=== PATIENT | female | born 1985 | race Caucasian/White ===

== ENCOUNTER 2016-07-02 09:41 | Emergency (ER) | payer OTHER ==
[2016-07-02 11:00] VITALS: BP 110/73
[2016-07-02] MEDS ORDERED: Ketorolac INJ* 60 MG/2 ML VIAL IM ONE (11:52)
--- NOTE | 2016-07-02 11:58 | UC ---
Back Pain HPI - HPI Summary HPI Summary: low back pain x 3 days after a fall while shoveling snow. Also left perineal sore that has been draining for a month. States she squeezed it and got something out, but it has not gone away. No fever. LMP present since 06/25/16 Pt has some chronic back pain has had tylenol with codeine, tramadol in the past. I stop also shows suboxone for several months in Jan. Pt states she never used drugs. Was getting counseling at [facility] on [address] in [place] and states she used to smoke marijuana. States she has 3 kids and "would never touch that stuff". - History of Current Complaint Chief Complaint: UCBackPain Stated Complaint: S/P LOWER BACK PAIN/UPPER THIGH COMPLAINT Time Seen by Provider: 07/02/16 11:40 Hx Obtained From: Patient Hx Last Menstrual Period: 06/25/16 ?: No Onset/Duration: Gradual Onset, Lasting Days, Still Present Timing: Constant Severity Initially: Moderate Severity Currently: Moderate Pain Intensity: 9 Pain Scale Used: 0-10 Numeric Back Pain: Is Discrete @ - lower back and left perineal Character: Aching Aggravating: Movement Alleviating: Nothing Associated Signs And Symptoms: Positive: Numbness, Tingling. Negative: Bladder Incontinence, Bowel Incontinence Related History: Previous Back Injury - Allergies/Home Medications Allergies/Adverse Reactions: Allergies Allergy/AdvReac Type Severity Reaction Status Date / Time Azithromycin Allergy Unknown vomiiting Verified 01/16/16 17:22 [From Zithromax Z-Rigoberto] Naproxen AdvReac Intermediate NAUSEA, Verified 01/16/16 17:22 VOMITING Home Medications: Home Medications Tylenol With Codeine 1 dose PO SEE INSTRUCTIONS PRN 07/02/16 [History Confirmed 07/02/16] PMH/Surg Hx/FS Hx/Imm Hx Previously Healthy: No - was on suboxone but then was taken off this,states she never abused drugs Endocrine History Of: Denies: Diabetes Cardiovascular History Of: Denies: Hypertension, Pacemaker/ICD Respiratory History Of: Reports: Asthma GI/ History Of: Denies: Renal Disease - Surgical History Surgical History: Yes Surgery Procedure, Year, and Place: [id number]; tubal ligation - Family History Known Family History: Positive: Hypertension - Social History Lives: With Family Alcohol Use: None Substance Use Type: Prescribed Smoking Status (MU): Heavy Every Day Tobacco Smoker Type: Cigarettes Amount Used/How Often: 1/2 PPD Household Exposure Type: Cigarettes Review of Systems Constitutional: Negative Skin: Other - draining spot on left labia majora Gastrointestinal: Negative Motor: Other - low back pain Neurovascular: Negative Musculoskeletal: Arthralgia Neurological: Negative Psychological: Negative All Other Systems Reviewed And Are Negative: Yes Physical Exam Triage Information Reviewed: Yes Appearance: Well-Appearing, Well-Nourished, Pain Distress Vital Signs: Initial Vital Signs Temp 99.7 F 07/02/16 10:52 Pulse 76 07/02/16 10:52 Resp 20 07/02/16 10:52 BP 110/73 07/02/16 10:52 Vital Signs Reviewed: Yes Eyes: Positive: Conjunctiva Clear ENT: Positive: Normal ENT inspection Neck: Positive: Supple, Nontender, No Lymphadenopathy Respiratory: Positive: Lungs clear, Normal breath sounds, No respiratory distress Cardiovascular: Positive: RRR, No Murmur, Pulses Normal, Brisk Capillary Refill Abdomen Description: Positive: Nontender, No Organomegaly, Soft. Negative: Distended, Guarding Bowel Sounds: Positive: Present Musculoskeletal: Positive: Strength Intact, ROM Intact, Other: - point tenderness low lumbar spine Neurological: Positive: Alert, Muscle Tone Normal Psychological Exam: Normal Skin: Positive: Other - no track durant, tattoos, draining lesion left perineum ( left labia majora) with pinpoint redness, shaved pubic area, no mass Back Pain Course/Dx - Course Course Of Treatment: wound cultured left perineum/labia majora in shaved area. toradol 30mg IM given, despite listed allergy to naproxen which is not a true allergy, is nausea/vomiting. Pt regularly takes ibuprofen without adverse effect or allergy. discussed narcotic and hx suboxone RX. Pt insists that she was never a drug abuser. - Differential Dx/Diagnosis Differential Diagnosis/HQI/PQRI: Fracture, Herniated Disc, Strain, Sprain Provider Diagnoses: sacrococcygeal fracture. abscess left groin Discharge - Discharge Plan Condition: Stable Disposition: HOME Prescriptions: Acetaminop/Codeine 30 MG TAB* [Tylenol/Codeine 30 MG TAB*] 1 tab PO Q6H PRN #12 tab MDD 4 PRN Reason: Pain Cephalexin CAP* [Keflex 500 CAP*] 500 mg PO QID #40 cap Ibuprofen TAB* [Motrin TAB* 800 MG] 800 mg PO Q6H #40 tab Sulfamethox/Trimethoprim DS* [Bactrim DS 800/160 TAB*] 1 tab PO BID #20 tab Patient Education Materials: Coccyx Injury (ED), Abscess (ED) Referrals: LESTER Herring [Primary Care Provider] - Additional Instructions: Dr. Shankar recommends Sitz baths and a donut cushion. Ask about a toilet insert for the Sitz baths. Dr. Shankar gave you a shot of Toradol (ketorolac) at 12:21pm, even though you have an listed allergy to naproxen and you did not have an allergic reaction. You have a minimally displaced fracture at the sacrococcygeal junction. Return to urgent care if any new or worsening symptoms.
[2016-07-02] MEDS ORDERED: Ketorolac INJ* 30 MG/ML 1 ML VIAL IM ONE (12:17)
--- NOTE | 2016-07-02 12:27 | RAD ---
HISTORY: Fall, low back pain COMPARISONS: None VIEWS: 5 , Frontal, lateral, coned-down lateral sacral, and bilateral oblique views of the lumbar spine. FINDINGS: ALIGNMENT: The alignment is normal. VERTEBRAL BODIES: There is a step-off of the sacrococcygeal junction suggestive of a minimally displaced fracture JOINTS: There is mild facet hypertrophic change along the lower lumbar spine INTERVERTEBRAL DISCS: The intervertebral disc heights are normal. SOFT TISSUE: Unremarkable. OTHER: The pelvis is unremarkable. The lung bases are clear. IMPRESSION: PROBABLE MINIMALLY DISPLACED FRACTURE OF THE SACROCOCCYGEAL JUNCTION
== END 2016-07-02 13:10 | disposition home or self-care (01) ==
LOC: UCCORT 09:41
DX: S32.2XXA Fracture of coccyx, initial encounter for closed fracture (principal); W00.0XXA Fall on same level due to ice and snow, initial encounter; Y93.H1 Activity, digging, shoveling and raking; Y92.9 Unspecified place or not applicable; L02.214 Cutaneous abscess of groin; Z88.6 Allergy status to analgesic agent; Z88.1 Allergy status to other antibiotic agents; F17.210 Nicotine dependence, cigarettes, uncomplicated; Z32.02 Encounter for pregnancy test, result negative
CPT/HCPCS: 72110; 81003; 84702; 87070; 87077; 87205; 87640; 87641; 96372; 99212; G0463; J1885

== ENCOUNTER 2016-07-04 18:19 | Emergency (ER) | payer OTHER ==
[2016-07-04 18:32] VITALS: BP 111/63
--- NOTE | 2016-07-04 19:07 | UC ---
Back Pain HPI - HPI Summary HPI Summary: here for narcotic pain med---as she is not getting pain relief with tylenol and codiene. - History of Current Complaint Chief Complaint: UCBackPain Stated Complaint: LOW BACK PAIN FOLLOW UP Time Seen by Provider: 07/04/16 19:05 Hx Obtained From: Patient Hx Last Menstrual Period: 06/25/16 ?: No Onset/Duration: Gradual Onset, Lasting Days - 5, Still Present Timing: Constant Severity Initially: Moderate Severity Currently: Moderate Pain Intensity: 8 Back Pain: Is Discrete @ - coccyx Character: Aching, Throbbing Aggravating: Movement Alleviating: Nothing Associated Signs And Symptoms: Positive: Negative Related History: Previous Back Injury - fell 5 days ago---seen 2 days ago dx with coccyx fx. - Allergies/Home Medications Allergies/Adverse Reactions: Allergies Allergy/AdvReac Type Severity Reaction Status Date / Time Azithromycin Allergy Unknown vomiiting Verified 07/04/16 18:32 [From Zithromax Z-Rigoberto] Naproxen AdvReac Intermediate NAUSEA, Verified 07/04/16 18:32 VOMITING PMH/Surg Hx/FS Hx/Imm Hx Previously Healthy: Yes Endocrine History Of: Denies: Diabetes Cardiovascular History Of: Denies: Hypertension, Pacemaker/ICD Respiratory History Of: Reports: Asthma GI/ History Of: Denies: Renal Disease - Surgical History Surgical History: Yes Surgery Procedure, Year, and Place: [id number]; tubal ligation - Family History Known Family History: Positive: Hypertension - Social History Occupation: Unemployed Lives: With Family Alcohol Use: None Substance Use Type: Prescribed Smoking Status (MU): Heavy Every Day Tobacco Smoker Type: Cigarettes Amount Used/How Often: 1/2 PPD Have You Smoked in the Last Year: Yes Household Exposure Type: Cigarettes Cessation Counseling: Patient Advised to Stop Review of Systems Constitutional: Negative Skin: Negative Eyes: Negative ENT: Negative Respiratory: Negative Cardiovascular: Negative Gastrointestinal: Negative Genitourinary: Negative Motor: Negative Neurovascular: Negative Musculoskeletal: Arthralgia - coccyx pain Neurological: Negative Psychological: Negative All Other Systems Reviewed And Are Negative: Yes Physical Exam Triage Information Reviewed: Yes Appearance: Well-Appearing, Well-Nourished, Pain Distress - mild Vital Signs: Initial Vital Signs Temp 99.1 F 07/04/16 18:24 Pulse 80 03/19/17 18:24 Resp 16 07/04/16 18:24 BP 111/63 07/04/16 18:24 Pulse Ox 98 07/04/16 18:24 Vital Signs Reviewed: Yes Eye Exam: Normal Eyes: Positive: Conjunctiva Clear ENT Exam: Normal ENT: Positive: Normal ENT inspection, Hearing grossly normal. Negative: Nasal congestion, Nasal drainage, Trismus, Muffled/hoarse voice Dental: Positive: Gross Decay/Caries @ Neck exam: Normal Neck: Positive: Supple, Nontender, No Lymphadenopathy Respiratory Exam: Normal Respiratory: Positive: Chest non-tender, No respiratory distress, No accessory muscle use Cardiovascular Exam: Normal Cardiovascular: Positive: RRR, No Murmur, Pulses Normal, Brisk Capillary Refill Musculoskeletal Exam: Normal Musculoskeletal: Positive: Strength Intact, ROM Intact, No Edema Neurological Exam: Normal Neurological: Positive: Alert, Muscle Tone Normal Psychological Exam: Normal Skin Exam: Normal Re-Evaluation - Re-Evaluation First Eval Change: Improved - pain relief with Tordal Back Pain Course/Dx - Course Course Of Treatment: extensive support regarding opiate abuse and relapse prevention (as patient asked for vicoden and oxy for pain med), rx for donut pillow po to, follow with pcp on as planned - Differential Dx/Diagnosis Differential Diagnosis/HQI/PQRI: Fracture, Strain, Sprain Provider Diagnoses: Coccyx fracture, opiate addiction , nicotine addiction Discharge - Discharge Plan Condition: Stable Disposition: HOME Prescriptions: Ketorolac TAB (NF) [Toradol TAB (NF)] 10 mg PO TID #15 tab Patient Education Materials: Coccyx Injury (ED) Referrals: LESTER Herring [Primary Care Provider] - 07/07/16 (as planned )
[2016-07-04] MEDS ORDERED: Ketorolac INJ* 60 MG/2 ML VIAL IM ONE (19:15)
== END 2016-07-04 20:06 | disposition home or self-care (01) ==
LOC: UCCORT 18:19
DX: S32.2XXD Fracture of coccyx, subsequent encounter for fracture with routine healing (principal); W19.XXXD Unspecified fall, subsequent encounter; Z88.6 Allergy status to analgesic agent; Z55.1 Schooling unavailable and unattainable; F11.20 Opioid dependence, uncomplicated; F17.210 Nicotine dependence, cigarettes, uncomplicated
CPT/HCPCS: 96372; 99212; G0463; J1885

== ENCOUNTER 2016-08-16 09:42 | Emergency (ER) | payer OTHER ==
[2016-08-16 10:01] VITALS: BP 106/66
--- NOTE | 2016-08-16 10:17 | UC ---
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 who is 5 years old and her lower back started hurting pain is constant aching sometimes stabbing pain in sacral area pain is non radiating bending forward and lifting increases the pain denies any trauma has been taking tylenol and ibuprofen, flexeril without relief last night took hydrocodone that her mother gave her and it was effective last pain medication 8pm yesterday never went to ortho for followup had some mild pain in right rib this morning but has resolved denies fever , incontinence needs refill on albuterol inhaler - History of Current Complaint Chief Complaint: UCBackPain Stated Complaint: LOWER BACK/RIGHT RIB PAIN Time Seen by Provider: 08/16/16 10:10 Hx Obtained From: Patient Hx Last Menstrual Period: 07/26/16 - Allergies/Home Medications Allergies/Adverse Reactions: Allergies Allergy/AdvReac Type Severity Reaction Status Date / Time Azithromycin Allergy Unknown vomiiting Verified 08/16/16 10:01 [From Zithromax Z-Rigoberto] Naproxen AdvReac Intermediate NAUSEA, Verified 08/16/16 10:01 VOMITING Home Medications: Home Medications Acetaminophen TAB* [Tylenol TAB*] 2,000 mg PO Q5H PRN 08/16/16 [History Confirmed 08/16/16] Cyclobenzaprine TAB* [Flexeril 10 MG TAB*] 10 mg PO TID PRN 08/16/16 [History Confirmed 08/16/16] Ibuprofen TAB* [Motrin TAB* 800 MG] 800 mg PO Q6H PRN 08/16/16 [History Confirmed 08/16/16] PMH/Surg Hx/FS Hx/Imm Hx Previously Healthy: Yes Endocrine History Of: Denies: Diabetes Cardiovascular History Of: Denies: Hypertension, Pacemaker/ICD Respiratory History Of: Reports: Asthma GI/ History Of: Denies: Renal Disease - Surgical History Surgical History: Yes Surgery Procedure, Year, and Place: [id number]; tubal ligation - Family History Known Family History: Positive: Hypertension Negative: Cardiac Disease, Diabetes - Social History Occupation: Employed Full-time Lives: With Family Alcohol Use: None Substance Use Type: Prescribed Smoking Status (MU): Heavy Every Day Tobacco Smoker Type: Cigarettes Amount Used/How Often: 1/2 PPD Have You Smoked in the Last Year: Yes Household Exposure Type: Cigarettes Cessation Counseling: Patient Advised to Stop Review of Systems Constitutional: Negative Skin: Negative Eyes: Negative ENT: Negative Respiratory: Negative Cardiovascular: Negative Gastrointestinal: Negative Genitourinary: Negative Motor: Negative Neurovascular: Negative Musculoskeletal: Other: - lower back pain Neurological: Negative Psychological: Negative All Other Systems Reviewed And Are Negative: Yes Physical Exam Triage Information Reviewed: Yes Appearance: No Pain Distress, Well-Nourished Vital Signs: Initial Vital Signs Temp 99.2 F 08/16/16 09:51 Pulse 86 08/16/16 09:51 Resp 18 08/16/16 09:51 BP 106/66 08/16/16 09:51 Pulse Ox 99 08/16/16 09:51 Vital Signs Reviewed: Yes Eyes: Positive: Conjunctiva Clear ENT: Positive: Pharynx normal, TMs normal Neck: Positive: No Lymphadenopathy Respiratory: Positive: Lungs clear, Normal breath sounds, No respiratory distress, No accessory muscle use Cardiovascular: Positive: RRR, No Murmur, Pulses Normal Abdomen Description: Positive: Nontender, No Organomegaly, Soft Bowel Sounds: Positive: Present Musculoskeletal: Positive: Other: - Spine have no noted deformities or signs of inflammation. Curvature of thoracic, and lumbar spine are within normal limits. Bony features of shoulders and hips are of equal height bilaterally. Posture is upright, and gait is smooth and normal. Spinous processes of T1-L5 palpable, midline, and non-tender; No step-offs. tenderness in sacral musculature and over coccyx Flexion, extension, and rotation of the remaining spinal column is within normal limits. Patient cannot flex forward d/t pain pain. Lateral bending causes no discomfort when bending to the right and left side. Neurological Exam: Normal Neurological: Positive: Other: - patellar reflaexes intoct, SLR negative Psychological Exam: Normal Skin Exam: Normal Throat Pain/Nasal Course/Dx - Course Course Of Treatment: x-ray shows no evidence for fracture will start muscle relaxer, NSAIDS and sent to PT for further evaluation. - Differential Dx/Diagnosis Differential Diagnosis/HQI/PQRI: Other - fx coccyx, acute lower back pain Provider Diagnoses: lower back pain Discharge - Discharge Plan Condition: Stable Disposition: HOME Prescriptions: Albuterol HFA INHALER* [Ventolin HFA Inhaler*] 2 puff INH Q4H PRN #1 mdi PRN Reason: Wheezing Ibuprofen TAB* [Motrin TAB* 800 MG] 800 mg PO Q8H #30 tab Metaxalone TAB* [Skelaxin TAB*] 800 mg PO TID #30 tab Patient Education Materials: Low Back Strain (ED) Referrals: LESTER Herring [Primary Care Provider] - Additional Instructions: Start skelaxin as directed. Do not drink alcohol or drive while taking skelaxin Please call physical therapy for further evaluation and treatment. Take ibuprofen for fever or pain. Increase fluids and rest. Please review your discharge instructions. If your symptoms do not improve please call your primary care provider or return to urgent care.
[2016-08-16] MEDS ORDERED: Ketorolac INJ* 60 MG/2 ML VIAL IM ONE (10:20)
--- NOTE | 2016-08-16 10:47 | RAD ---
INDICATION: Sacrococcygeal pain. COMPARISON: Comparison is made with a prior x-ray study of the lumbar sacral spine from July 02, 2016. TECHNIQUE: 3 views of the sacrococcygeal spine were obtained. FINDINGS: The vertebra are in normal alignment. No fracture is seen. There is a single surgical clip which projects to the left of the midline. IMPRESSION: NO EVIDENCE FOR FRACTURE, IF THE PATIENT'S SYMPTOMS PERSIST CONSIDER MR IMAGING.
== END 2016-08-16 11:14 | disposition home or self-care (01) ==
LOC: UCCORT 09:42
DX: M54.5 Low back pain (principal); R07.81 Pleurodynia; J45.909 Unspecified asthma, uncomplicated; Z88.1 Allergy status to other antibiotic agents; Z88.6 Allergy status to analgesic agent; F17.210 Nicotine dependence, cigarettes, uncomplicated
CPT/HCPCS: 72220; 96372; 99212; G0463; J1885

== ENCOUNTER 2017-06-10 09:58 | Emergency (ER) | payer OTHER ==
[2017-06-10 11:57] VITALS: BP 117/80
[2017-06-10] MEDS ORDERED: Acetaminophen TAB* 325 MG PO ONE (12:12)
--- NOTE | 2017-06-10 12:21 | UC ---
HPI Febrile Illness - HPI Summary HPI Summary: Pt here w/ SANTAMARIA, photophobia, anterior muscle soreness from ab up to neck, fever, diarrhea w/ vomiting (none today -drinking cola w/o difficulty), nasal congestion and throat irritation w/ intermittent/scant cough. She received influenza vaccine. Has school aged kids at home w/ similar sx. Has asthma and smokes but reports she's not been smoking as she's too sore. Has not needed to use her albuterol more than q 6 hours and helps when she uses it. No chest pain , SOB, wheezing or tightness. Has tried ibuprofen 800mg for body aches w/ minimal relief. Does not want anything for nausea at this time -holding things down today. - History of Current Complaint Chief Complaint: UCGeneralIllness Time Seen by Provider: 06/10/17 11:41 Hx Obtained From: Patient Hx Last Menstrual Period: 05/06/17 Pain Intensity: 9 - Allergy/Home Medications Allergies/Adverse Reactions: Allergies Allergy/AdvReac Type Severity Reaction Status Date / Time azithromycin Allergy Nausea And Verified 06/10/17 11:49 Vomiting naproxen Allergy Nausea And Verified 06/10/17 11:49 Vomiting PMH/Surg Hx/FS Hx/Imm Hx Previously Healthy: Yes Respiratory History: Asthma - Surgical History Surgical History: Yes Surgery Procedure, Year, and Place: [id number]; tubal ligation - Family History Known Family History: Positive: Hypertension Negative: Cardiac Disease, Diabetes - Social History Occupation: Unemployed Lives: With Family Alcohol Use: None Substance Use Type: None Smoking Status (MU): Current Every Day Smoker Type: Cigarettes Amount Used/How Often: 1/2 PPD Have You Smoked in the Last Year: Yes Household Exposure Type: Cigarettes Review of Systems Constitutional: Fever, Fatigue Eyes: Photophobia ENT: Ear Ache, Sinus Congestion Respiratory: Cough Cardiovascular: Negative Gastrointestinal: Vomiting, Diarrhea Genitourinary: Negative Motor: Negative Neurovascular: Negative Musculoskeletal: Myalgia Neurological: Headache Psychological: Negative Is Patient Immunocompromised?: No All Other Systems Reviewed And Are Negative: Yes Physical Exam Triage Information Reviewed: Yes Appearance: Well-Nourished, Ill-Appearing - wearing sunglasses; sitting hunched forward on treatment table - appears fatigued but moving well, good muscle tone , alert and speaking in full sentences, Pain Distress - midl to moderate Vital Signs: Initial Vital Signs Temp 98.3 F 06/10/17 11:51 Pulse 79 06/10/17 11:51 Resp 16 06/10/17 11:51 BP 117/80 06/10/17 11:51 Pulse Ox 99 06/10/17 11:51 Vital Signs Reviewed: Yes Eye Exam: Normal Eyes: Positive: Conjunctiva Clear ENT Exam: Normal ENT: Positive: Normal ENT inspection, Hearing grossly normal, Nasal congestion, TMs normal. Negative: Pharynx normal - cobblestoning, Tonsillar swelling, Tonsillar exudate, Trismus, Muffled voice, Hoarse voice Neck exam: Normal Neck: Positive: Supple, Nontender, No Lymphadenopathy Respiratory Exam: Normal Respiratory: Positive: Lungs clear, Normal breath sounds. Negative: Crackles, Rhonchi, Stridor, Wheezing Cardiovascular Exam: Normal Cardiovascular: Positive: RRR, No Murmur Abdominal Exam: Normal Abdomen Description: Positive: No Organomegaly, Soft. Negative: Nontender - generalized tenderness - no focal area of pain -feels "sore", CVA Tenderness (R) , CVA Tenderness (L), Distended, Guarding Bowel Sounds: Positive: Present Musculoskeletal Exam: Normal Musculoskeletal: Positive: Strength Intact Neurological Exam: Normal Neurological: Positive: Alert, Muscle Tone Normal Psychological Exam: Other - low mood Skin Exam: Normal Re-Evaluation - Re-Evaluation First Eval Change: Improved - no nausea, SANTAMARIA improved and aches improving Course/Dx - Course Course Of Treatment: Pt presents w/ multisystem symptoms. Influenza and strep neg pt sx improved w/ meds here. Suspect viral syndrome and migraine triggered by dehydration. Supportive care advised and danger s/sx reviewed for when to go to ED. Pt agrees w/ plan. - Diagnoses Clinic Provider Diagnoses: Viral syndrome. Migraine Discharge - Discharge Plan Condition: Stable Disposition: HOME Patient Education Materials: Viral Syndrome (ED), Migraine Headache (ED) Referrals: LESTER Herring [Primary Care Provider] - Additional Instructions: Stay hydrated, avoid stimulants to reduce diarrhea (ie. caffeine in cola, coffee , tea, and nicotine). You may alternate acetaminophen w/ ibuprofen with food for fever, aches, etc. Try BRAT diet to reduce diarrhea as well (Bananas, Rice, Applesauced, Hodgen). You may also try the following for URI symptoms: Perform nasal wash/netti pot 2 x day with 8 ounces of warm water + 1/4 teaspoon of salt or saline nasal spray as needed Perform throat gargles with warm salt water as needed Drink 60+ ounces of water daily Sleep 8+ hours per night Avoid Dairy and sugar Drink hot herbal/decaf tea with lemon & honey Drink chicken broth (preferably organic, free range chicken) Use a humidifier in your house, but especially near bed at night. You may also keep home temperature at 68F or less. Try a facial steam with or without eucalyptus essential oil or Kingston's vapor rub for decongestion. Avoid smoke, candles, perfumes/colonge, air fresheners, scented lotions, etc Consider taking Vitamin D3 5,000iu and Vitamin C 1,000mg every day during illness If worse, go to ED
[2017-06-10] MEDS ORDERED: Ketorolac INJ* 60 MG/2 ML VIAL IM ONE (12:49)
[2017-06-10] MEDS ORDERED: Ondansetron ODT TAB* 4 MG PO ONE (12:49)
== END 2017-06-10 13:39 | disposition home or self-care (01) ==
LOC: UCCORT 09:58
DX: B34.9 Viral infection, unspecified (principal); G43.909 Migraine, unspecified, not intractable, without status migrainosus; F17.210 Nicotine dependence, cigarettes, uncomplicated; J45.909 Unspecified asthma, uncomplicated
CPT/HCPCS: 87502; 87651; 96372; 99212; A9270-GY; G0463; J1885

== ENCOUNTER 2017-07-13 18:08 | Emergency (ER) | payer OTHER ==
[2017-07-13 18:48] VITALS: BP 121/63
--- NOTE | 2017-07-13 19:32 | UC ---
General HPI - HPI Summary HPI Summary: 1. sore throat for 2 days and pain with swallow. no fever or uri. 2. pain and swelling to top of L foot for 3 days. Denies injury but states " I crack my toes every day". no rash. - History of Current Complaint Hx Obtained From: Patient Hx Last Menstrual Period: 07/09/17 Pain Intensity: 8 Aggravating: foot hurts more with walking Associated Signs & Symptoms: Negative: Fever <Shari Omalley - Last Filed: 07/13/17 19:45> <Melany Hill - Last Filed: 07/13/17 20:47> - History of Current Complaint Chief Complaint: UCLowerExtremity Stated Complaint: SORE THROAT/LEFT FOOT Time Seen by Provider: 07/13/17 19:16 - Allergy/Home Medications Allergies/Adverse Reactions: Allergies Allergy/AdvReac Type Severity Reaction Status Date / Time azithromycin Allergy Nausea And Verified 07/13/17 18:45 Vomiting naproxen Allergy Nausea And Verified 07/13/17 18:45 Vomiting Home Medications: Home Medications Acetaminophen [Acetaminophen Extra Strength] 1,000 mg PO ONCE 07/13/17 [History Confirmed 07/13/17] PMH/Surg Hx/FS Hx/Imm Hx Respiratory History: Asthma - Surgical History Surgical History: Yes Surgery Procedure, Year, and Place: [id number]; tubal ligation - Family History Known Family History: Positive: Hypertension Negative: Cardiac Disease, Diabetes - Social History Alcohol Use: None Substance Use Type: None Smoking Status (MU): Current Every Day Smoker Type: Cigarettes Amount Used/How Often: 1 PPD Have You Smoked in the Last Year: Yes Household Exposure Type: Cigarettes <Shari Omalley - Last Filed: 07/13/17 19:45> Review of Systems Constitutional: Negative Skin: Negative Eyes: Negative ENT: Sore Throat Respiratory: Negative Cardiovascular: Negative Gastrointestinal: Negative Genitourinary: Negative Motor: Negative Neurovascular: Negative Musculoskeletal: Negative Neurological: Negative Psychological: Negative Is Patient Immunocompromised?: No All Other Systems Reviewed And Are Negative: Yes <Shari Omalley - Last Filed: 07/13/17 19:45> Physical Exam Triage Information Reviewed: Yes Appearance: Well-Appearing Vital Signs: Initial Vital Signs Temp 97.7 F 07/13/17 18:43 Pulse 83 07/13/17 18:43 Resp 18 07/13/17 18:43 BP 121/63 07/13/17 18:43 Pulse Ox 83 07/13/17 18:43 Vital Signs Reviewed: Yes Eyes: Positive: Conjunctiva Clear ENT: Positive: Pharyngeal erythema, TMs normal, Uvula midline. Negative: Nasal congestion, Nasal drainage, Tonsillar swelling, Tonsillar exudate, Trismus, Muffled voice, Hoarse voice Neck: Positive: Supple, Nontender, Enlarged Nodes @ - peritonsilar Respiratory: Positive: Lungs clear, Normal breath sounds Cardiovascular: Positive: RRR, No Murmur Abdomen Description: Positive: Nontender, No Organomegaly, Soft Bowel Sounds: Positive: Present Musculoskeletal: Positive: Other: - LLE: hip, knee,ankle non tender. Dorsum L foot is mildly swollen and tender. No erythema or rash. S/V/M is intact. Calf non tender and no cords. Neurological: Positive: Alert Psychological: Positive: Age Appropriate Behavior Skin Exam: Normal <Shari Omalley - Last Filed: 07/13/17 19:45> Vital Signs: Initial Vital Signs Temp 97.7 F 07/13/17 18:43 Pulse 83 07/13/17 18:43 Resp 18 07/13/17 18:43 BP 121/63 07/13/17 18:43 Pulse Ox 83 07/13/17 18:43 <Melany Hill - Last Filed: 07/13/17 20:47> Diagnostics - Laboratory Diagnostic Studies Completed/Ordered: rapid strep=neg. <Shari Omalley - Last Filed: 07/13/17 19:45> Course/Dx - Course Course Of Treatment: rapid strep=neg, no antibiotic indicated, tx supportive. foot showns no concern for infection, xray of foot=nad. pt forcefully bends toes daily to crack them thus probable sprain. will splint. - Differential Dx - Multi-Symptom Provider Diagnoses: pharyngitis. L foot pain <Shari Omalley - Last Filed: 07/13/17 19:45> Discharge - Sign-Out/Discharge Documenting (check all that apply): Discharge - Billing Disposition and Condition Condition: STABLE Disposition: HOME <Shari Omalley - Last Filed: 07/13/17 19:45> - Billing Disposition and Condition Condition: STABLE Disposition: HOME <Melany Hill - Last Filed: 07/13/17 20:47> - Discharge Plan Condition: Stable Disposition: HOME Patient Education Materials: Pharyngitis (ED), Foot Sprain (ED) Referrals: LESTER Herring [Primary Care Provider] - 7 Days Attestation Statement User Type: Provider - I was available for consult. This patient was seen by the [facility]. The patient was not presented to, seen by, or examined by me. Ljj <Melany Hill - Last Filed: 07/13/17 20:47> Addendum entered and electronically signed by Shari Omalley PA 07/13/17 19:45 : UC Addendum Addendum: radiology read foot =nad
--- NOTE | 2017-07-13 19:43 | RAD ---
INDICATION: 2 days of left foot pain COMPARISON: None. TECHNIQUE: 3 views of the left foot were obtained. FINDINGS: The adequately corticated bones are properly aligned. Joint spaces appear maintained. No fracture, dislocation or focal bony abnormality is seen. IMPRESSION: Normal radiograph of the left foot. If the patient's symptoms persist, follow-up imaging is recommended.
== END 2017-07-13 19:54 | disposition home or self-care (01) ==
LOC: UCCORT 18:08
DX: J02.9 Acute pharyngitis, unspecified (principal); M79.672 Pain in left foot; F17.210 Nicotine dependence, cigarettes, uncomplicated; Z88.6 Allergy status to analgesic agent; Z88.3 Allergy status to other anti-infective agents
CPT/HCPCS: 87651; 99213; G0463

== ENCOUNTER 2018-05-02 17:57 | Emergency (ER) | payer OTHER ==
[2018-05-02 18:13] VITALS: BP 135/77
--- NOTE | 2018-05-02 18:30 | ED ---
Throat Pain/Nasal Congestion - HPI Summary HPI Summary: cough , ear ache, body aches, nausea, vomiting, - History of Current Complaint Chief Complaint: UCRespiratory Time Seen by Provider: 05/02/18 18:21 Hx Obtained From: Patient Onset/Duration: Gradual Onset, Lasting Days Severity: Mild Associated Signs And Symptoms: Positive: Wheezing Cough: Nonproductive - Allergies/Home Medications Allergies/Adverse Reactions: Allergies Allergy/AdvReac Type Severity Reaction Status Date / Time azithromycin Allergy Nausea And Verified 05/02/18 18:09 Vomiting naproxen Allergy Nausea And Verified 05/02/18 18:09 Vomiting Home Medications: Home Medications Albuterol HFA INHALER* [Ventolin HFA Inhaler*] 2 puff Q6HR PRN 05/02/18 [ History Confirmed 05/02/18] QUEtiapine TAB* [Seroquel 100 MG *] 200 mg BEDTIME 05/02/18 [History Confirmed 05/02/18] PMH/Surg Hx/FS Hx/Imm Hx Previously Healthy: Yes Endocrine/Hematology History: Denies: Hx Diabetes Cardiovascular History: Denies: Hx Hypertension, Hx Pacemaker/ICD Respiratory History: Reports: Hx Asthma History: Denies: Hx Dialysis, Hx Renal Disease Sensory History: Denies: Hx Hearing Aid Psychiatric History: Denies: Hx Panic Disorder - Surgical History Surgery Procedure, Year, and Place: [id number]; tubal ligation Infectious Disease History: Yes Infectious Disease History: Reports: Hx Shingles, History Other Infectious Disease - meningitis Denies: Traveled Outside the [place] in Last 30 Days - Family History Known Family History: Positive: Hypertension Negative: Cardiac Disease, Diabetes - Social History Alcohol Use: None Substance Use Type: Reports: None Smoking Status (MU): Current Every Day Smoker Type: Cigarettes Amount Used/How Often: 1/2 PPD Have You Smoked in the Last Year: Yes Review of Systems Constitutional: Negative Eyes: Negative Positive: Ear Ache Cardiovascular: Negative Positive: Cough Positive: Nausea Genitourinary: Negative All Other Systems Reviewed And Are Negative: Yes Physical Exam Triage Information Reviewed: Yes Vital Signs On Initial Exam: Initial Vitals Temp Pulse Resp BP Pulse Ox 36.6 C 96 16 135/77 98 05/02/18 18:10 05/02/18 18:10 05/02/18 18:10 05/02/18 18:10 05/02/18 18:10 Vital Signs Reviewed: Yes Appearance: Positive: Well-Appearing Skin: Positive: Warm, Dry Head/Face: Positive: Normal Head/Face Inspection Eyes: Positive: Normal, Conjunctiva Clear ENT: Positive: Normal ENT inspection Dental: Positive: Percussion Tenderness @ Neck: Positive: Supple Respiratory/Lung Sounds: Positive: Clear to Auscultation Cardiovascular: Positive: Normal Abdomen Description: Positive: Nontender Diagnostics - Vital Signs Vital Signs Temp Pulse Resp BP Pulse Ox 05/02/18 18:10 36.6 C 96 16 135/77 98 - Laboratory Lab Statement: Any lab studies that have been ordered have been reviewed, and results considered in the medical decision making process. EENT Course/Dx - Diagnoses Provider Diagnoses: Viral URI with cough Discharge - Sign-Out/Discharge Documenting (check all that apply): Patient Departure All imaging exams completed and their final reports reviewed: No Studies - Discharge Plan Condition: Fair Disposition: HOME Patient Education Materials: Viral Syndrome (ED) Referrals: LESTER Herring [Primary Care Provider] - - Billing Disposition and Condition Condition: FAIR Disposition: Home
== END 2018-05-02 19:02 | disposition home or self-care (01) ==
LOC: UCCORT 17:57
DX: J06.9 Acute upper respiratory infection, unspecified (principal); R05 Cough; R11.2 Nausea with vomiting, unspecified; J45.909 Unspecified asthma, uncomplicated; H92.09 Otalgia, unspecified ear; K08.89 Other specified disorders of teeth and supporting structures; Z88.1 Allergy status to other antibiotic agents; F17.210 Nicotine dependence, cigarettes, uncomplicated; Z79.1 Long term (current) use of non-steroidal anti-inflammatories (NSAID); Z79.899 Other long term (current) drug therapy
CPT/HCPCS: 87651; 99211; G0463

== ENCOUNTER 2018-06-27 11:11 | Emergency (ER) | payer OTHER ==
[2018-06-27 13:00] VITALS: BP 122/82
--- NOTE | 2018-06-27 13:34 | UC ---
General HPI - HPI Summary HPI Summary: Patient states she has had issues with feet swelling off and on. Not currently swollen. But states she has had increase in pain and numbness in her hands over the past few days. 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 Today she has pain from her elbow down and numbness in her hands and unable to flex her hands without pain. No H/A. No other weakness or numbness. Does not want to move. States she has elevate LFTs that she is being worked up for. No Hx of trauma. She does have repetitive use. Meds: reviewed. - History of Current Complaint Chief Complaint: UCUpperExtremity Stated Complaint: HAND/ARM NUMBNESS,SWOLLEN FEET Time Seen by Provider: 06/27/18 13:26 Hx Last Menstrual Period: end of last month Pain Intensity: 8 - Allergy/Home Medications Allergies/Adverse Reactions: Allergies Allergy/AdvReac Type Severity Reaction Status Date / Time azithromycin Allergy Nausea And Verified 06/27/18 12:54 Vomiting naproxen Allergy Nausea And Verified 06/27/18 12:54 Vomiting Home Medications: Home Medications Ibuprofen TAB* [Advil TAB*] 800 mg PO Q6H PRN 06/27/18 [History Confirmed ] PMH/Surg Hx/FS Hx/Imm Hx Previously Healthy: No - Surgical History Surgical History: Yes Surgery Procedure, Year, and Place: [id number]; tubal ligation - Family History Known Family History: Positive: Hypertension Negative: Cardiac Disease, Diabetes - Social History Alcohol Use: None Substance Use Type: None Smoking Status (MU): Current Every Day Smoker Type: Cigarettes Amount Used/How Often: 1/2 PPD Length of Time of Smoking/Using Tobacco: 15 yrs Have You Smoked in the Last Year: Yes Household Exposure Type: Cigarettes Review of Systems All Other Systems Reviewed And Are Negative: Yes Neurological: Positive: Weakness, Numbness Physical Exam Triage Information Reviewed: Yes Appearance: Well-Appearing Vital Signs: Initial Vital Signs Temp 97.1 F 06/27/18 12:55 Pulse 93 06/27/18 12:55 Resp 20 06/27/18 12:55 BP 122/82 06/27/18 12:55 Pulse Ox 100 06/27/18 12:55 Vital Signs Reviewed: Yes ENT: Positive: Normal ENT inspection Neck exam: Normal Respiratory: Positive: Lungs clear, Normal breath sounds Cardiovascular: Positive: RRR, No Murmur Neurological: Positive: Other: - Decreased sensation in bilateral hands. No sensory deficits in forearms. FROM in forearms. Limited ROM in hands due to pain. Skin Exam: Normal Course/Dx - Course Course Of Treatment: This is a 32 yr old previously healthy female who presents with numbness and pain in hands b/l. Assessment. Unclear the etiology - could be carpal tunnel due to repetitive use. Plan. Recommend ibuprofen 600 mg every 4- 6hours - take with food. Wear b/l wrist brace when active. If symptoms persist recommend follow up with neurology to rule out possible neurologic issue, then if negative likely need orthopedic evaluation. If symptoms worsen recommend go to ER for further imaging - Diagnoses Provider Diagnosis: Carpal tunnel syndrome on both sides Discharge - Sign-Out/Discharge Documenting (check all that apply): Patient Departure All imaging exams completed and their final reports reviewed: No Studies - Discharge Plan Condition: Good Disposition: HOME Forms: *Work Release Referrals: Emelina Thompson PA [Primary Care Provider] - Additional Instructions: Recommend ibuprofen 600 mg every 4- 6hours - take with food Wear b/l wrist brace when active If symptoms persist recommend follow up with neurology to rule out possible neurologic issue, then if negative likely need orthopedic evaluation If symptoms worsen recommend go to ER for further imaging - Billing Disposition and Condition Condition: GOOD Disposition: Home
== END 2018-06-27 13:57 | disposition home or self-care (01) ==
LOC: UCCORT 11:11
DX: G56.03 Carpal tunnel syndrome, bilateral upper limbs (principal); F17.210 Nicotine dependence, cigarettes, uncomplicated; Z88.1 Allergy status to other antibiotic agents; Z88.8 Allergy status to other drugs, medicaments and biological substances
CPT/HCPCS: 99213; G0463